=== PATIENT | male | born 1980 | race Caucasian/White ===

== ENCOUNTER 2022-04-18 11:54 | Day surgery (SDC) | payer OTHER ==
[~2022-04-18] VITALS: Ht 188 cm; Wt 126.3 kg
--- NOTE | 2022-04-18 15:54 | NUR ---
04/18/22 1554 Mayela Espinal 1411 PT ARRIVED IN PACU AWAKE WITH NO C/O'S. 1420 DR AT BEDSIDE. ALL QUESTIONS ANSWERED. 1430 SITTING AT BEDSIDE GETTING DRESSED. 1440 DC INSTRUCTIONS GIVEN. LEFT VIA W/C.
--- NOTE | 2022-04-19 15:11 | OR ---
[facility] [address] [place], [place] [address] Signed DATE OF OPERATION: 04/18/2022 SURGEON: Catie Echavarria MD PREOPERATIVE DIAGNOSES: 1. Screening colonoscopy. 2. Family history of colon cancer (mother and father). POSTOPERATIVE DIAGNOSIS: Polyps x3, minimal sigmoid diverticulosis. PROCEDURE: Total colonoscopy to cecum with cold snare polypectomy x1 and cold morcellation polypectomy x2. ANESTHESIA: Intravenous sedation, fentanyl 200 mcg and Versed 11 mg. INDICATIONS: This 42-year-old white man is a patient of Dr. Eryn Zuniga. He has been recommended to have colonoscopy on the basis of his family history of colon cancer in his father and mother. His mother developed colon cancer at age 60 and his father in his 70s. He has no symptoms of bleeding, diarrhea, or constipation. He is admitted at this time to undergo colonoscopy. He understands the risk of bleeding, infection, perforation, and so on. FINDINGS: The prep was good. Complete colonoscopy was undertaken of the cecum without question. Good visualization of the ileocecal valve and appendiceal orifice was noted. He had three polyps in total, all of them excised completely, two in the right colon and one in the transverse colon. Additionally, he had a few scattered diverticula of the sigmoid colon. DESCRIPTION OF PROCEDURE: The patient was brought to the endoscopy suite and placed in lateral decubitus position, given intravenous sedation to the point of slurred speech and nystagmus. Digital rectal examination was normal. Full cardiopulmonary monitoring was maintained. An Olympus video colonoscope was passed in the rectum and manipulated throughout the colon noting a few scattered diverticula of the sigmoid. The scope was advanced Electronically Signed By: CATIE ECHAVARRIA MD 04/19/22 1511 PATIENT NAME: MIRZA RAYO OPERATIVE REPORT DATE OF : 76 REPORT #: [id number] PHYSICIAN: CATIE ECHAVARRIA MD PCP: ERYN ZUNIGA MD REPORT IS CONFIDENTIAL AND NOT TO BE RELEASED WITHOUT AUTHORIZATION [facility] [address] [facility] [place] [address] Signed ultimately to the cecum. The ileocecal valve and appendiceal orifice were normal. The scope was withdrawn from that point. In the proximal ascending colon, there was a small sessile polyp, this was excised with cold morcellation technique. Further withdrawal showed another similar such polyp also excised with cold morcellation technique. Upon withdrawal of this transverse colon, a small somewhat linear sessile polyp was noted, this was clearly adenomatous. This was excised with cold snare technique. Specimen passed for pathology as well. Further withdrawal of the scope showed only a few scattered diverticula of the left colon and sigmoid. Retroflexed view was normal. Scope was removed. The patient was taken to the recovery room in good condition. CONCLUDING DIAGNOSIS: Polyps x3, minimal diverticula. PLAN: Given family history and current findings of polyp, would recommend repeat colonoscopy in three years, sooner if clinically indicated. He will return to the ongoing care of Dr. Eryn Zuniga. MD BERTRAM Ferreira/JENAE /[id number] cc: Eryn Zuniga MD Copies: ERYN ZUNIGA MD ~ Electronically Signed By: CATIE ECHAVARRIA MD 04/19/22 1511 PATIENT NAME: MIRZA RAYO OPERATIVE REPORT DATE OF : 76 REPORT #: [id number] PHYSICIAN: CATIE ECHAVARRIA MD PCP: ERYN ZUNIGA MD REPORT IS CONFIDENTIAL AND NOT TO BE RELEASED WITHOUT AUTHORIZATION
--- NOTE | 2022-04-20 12:18 | PATH ---
[facility] [address] [facility] [place], [place] [address] Signed SPECIMEN(S): A ASCENDING COLON POLYP SPECIMEN(S): B ASCENDING COLON POLYP SPECIMEN(S): C TRANSVERSE COLON POLYP SPECIMEN SOURCE: A. ASCENDING COLON POLYP B. ASCENDING COLON POLYP C. TRANSVERSE COLON POLYP CLINICAL HISTORY: Screening; significant family history of colon CA. FINAL PATHOLOGIC DIAGNOSIS: A. Ascending colon polyp: - Tubular adenoma (one fragment). B. Ascending colon polyp: - Benign colonic mucosa, negative for specific diagnostic abnormality. C. Transverse colon polyp: - Tubular adenoma (one fragment). DS:[facility]:C2NR MICROSCOPIC EXAMINATION: Histologic sections of all submitted blocks are examined by light microscopy. These findings, together with the gross examination, support the pathologic diagnosis. GROSS DESCRIPTION: A. The specimen, labeled and designated "Vinicius, ascending colon polyp," is received in formalin and consists of five draper soft tissue fragments, ranging from 0.1-0.2 cm. Entirely submitted in (A1). B. The specimen, labeled and designated "Vinicius, ascending colon polyp," is received in formalin and consists of two draper soft tissue fragments, measuring up to 0.1 cm. Entirely submitted in (B1). C. The specimen, labeled and designated "Vinicius, transverse colon polyp," is received in formalin and consists of two draper soft tissue fragments, measuring up to 0.1 cm. Entirely submitted in (C1). JS (under the direct supervision of a pathologist) The Gross Description was prepared using a voice recognition system. The report was reviewed for accuracy; however, sound-alike word errors, addition and/or deletions may occur. If there is any question about this report, please contact Client Services. PATIENT NAME: MIRZA RAYO PATHOLOGY DATE OF : 76 REPORT #: [id number] PHYSICIAN: CEZAR SCHERER PCP: ERYN ROBISON MD REPORT IS CONFIDENTIAL AND NOT TO BE RELEASED WITHOUT AUTHORIZATION [facility] [address] [facility] [place] [address] Signed PERFORMING LABORATORY: The technical component was performed by [facility], [address] [place] [address] (CLIA# [id number]). Professional interpretation was performed by [facility] - [address] [address] (CLIA#: [id number]). Diagnostician: Jon Plasencia MD Pathologist Electronically Signed 04/20/2022 Copies: ~ PATIENT NAME: MIRZA RAYO PATHOLOGY DATE OF : 76 REPORT #: [id number] PHYSICIAN: CEZAR SCHERER PCP: ERYN ROBISON MD REPORT IS CONFIDENTIAL AND NOT TO BE RELEASED WITHOUT AUTHORIZATION
== END 2022-04-18 14:40 | disposition home or self-care (01) ==
LOC: OPS 11:54 → DS 11:54 → OPS 13:00 → DS 14:00 → OPS 14:00
PROVIDERS: ATTEND Surgery
PROC: 0DBL8ZX Excision of Transverse Colon, Via Natural or Artificial Opening Endoscopic, Diagnostic (ICD-10-PCS; 2022-04-18)
PROC: 0DBK8ZX Excision of Ascending Colon, Via Natural or Artificial Opening Endoscopic, Diagnostic (ICD-10-PCS; principal; 2022-04-18 13:00)
DX: Z12.11 Encounter for screening for malignant neoplasm of colon (principal); D12.2 Benign neoplasm of ascending colon; D12.3 Benign neoplasm of transverse colon; K57.30 Diverticulosis of large intestine without perforation or abscess without bleeding; I10 Essential (primary) hypertension; E66.01 Morbid (severe) obesity due to excess calories; Z68.35 Body mass index [BMI] 35.0-35.9, adult; Z80.0 Family history of malignant neoplasm of digestive organs
CPT/HCPCS: 99153; G0500; J2250; J3010; J7121